=== PATIENT | male | born 1945 | race Caucasian/White ===

== ENCOUNTER 2017-08-19 10:47 | Emergency (ER) | payer OTHER, MEDICARE ==
--- NOTE | 2017-08-19 11:07 | C.PDOC ---
History Of Present Illness 71 year old male presents to the ED with complaints of pain to the right wrist following a trip and fall last night. Patient reports while falling he extended both of his hands to break his fall. He notes he is right hand dominant and denies head injury or LOC. Chief Complaint (Nursing): Upper Extremity Problem/Injury History Per: Patient History/Exam Limitations: no limitations Onset/Duration Of Symptoms: Hrs Current Symptoms Are (Timing): Still Present Quality: "Pain" Exacerbating Factor(s): Movement Recent travel outside of the [place]: No Past Medical History Reviewed: Historical Data, Nursing Documentation, Vital Signs Vital Signs: Last Vital Signs Temp 98 F 08/19/17 14:00 Pulse 72 08/19/17 14:00 Resp 18 08/19/17 14:00 BP 116/74 08/19/17 14:00 Pulse Ox 95 08/19/17 14:46 - Medical History PMH: Diabetes (type 2), HTN Family History: States: Unknown Family Hx - Social History Hx Tobacco Use: No Hx Alcohol Use: No Hx Substance Use: No - Immunization History Hx Tetanus Toxoid Vaccination: No Hx Influenza Vaccination: Yes Hx Pneumococcal Vaccination: No Review Of Systems Musculoskeletal: Positive for: Hand Pain (right wrist pain ) Neurological: Negative for: Weakness, Numbness Physical Exam - Physical Exam Appears: Non-toxic, No Acute Distress Skin: Warm, Dry Head: Atraumatic, Normacephalic Cardiovascular: Rhythm Regular, No Murmur Respiratory: No Rales, No Rhonchi, No Wheezing, Other (clear to auscultation bilaterally ) Extremity: No Normal ROM (slight decreased ROM of the right wrist ), Tenderness (point tenderness to posterior aspect of right wrist ), Capillary Refill (good capillary refill, less than two seconds ), No Deformity, No Swelling Pulses: Left Radial: Normal, Right Radial: Normal Neurological/Psych: Oriented x3 ED Course And Treatment O2 Sat by Pulse Oximetry: 95 (RA) Disposition - Disposition Referrals: [facility], [Non-Staff] - Disposition: HOME/ ROUTINE Disposition Time: 13:30 Condition: GOOD Additional Instructions: Thank you for letting us take care of you today. Your provider was Dr. Bergeron. You were treated for a wrist sprain. The emergency medical care you received today was directed at your acute symptoms. If you were prescribed any medication, please fill it and take as directed. It may take several days for your symptoms to resolve. Return to the Emergency Department if your symptoms worsen, do not improve, or if you have any other problems. Please contact your doctor or call one of the physicians/clinics you have been referred to that are listed on the Patient Visit Information form that is included in your discharge packet. Bring any paperwork you were given at discharge with you along with any medications you are taking to your follow up visit. Our treatment cannot replace ongoing medical care by a primary care provider (PCP) outside of the emergency department. Thank you for allowing the [facility] team to be part of your care today. Follow up with your primary doctor in 1-2 days for re-evaluation and further management. Prescriptions: Ibuprofen [Motrin] 600 mg PO Q6 PRN #20 tab PRN Reason: Pain, Moderate (4-7) Instructions: Wrist Sprain (ED) Forms: [employer] (Azeri) - Clinical Impression Clinical Impression: Wrist sprain - Scribe Statement The provider has reviewed the documentation as recorded by the Scribbraxton Martin All medical record entries made by the Scribe were at my direction and personally dictated by me. I have reviewed the chart and agree that the record accurately reflects my personal performance of the history, physical exam, medical decision making, and the department course for this patient. I have also personally directed, reviewed, and agree with the discharge instructions and disposition.
--- NOTE | 2017-08-19 13:38 | RAD ---
PROCEDURE: Right Wrist Radiographs. HISTORY: r/o fx COMPARISON: None. FINDINGS: BONES: No evidence of acute fracture. JOINTS: No evidence of dislocation. [id number] arthritic and osteoarthritic changes noted at the right wrist. SOFT TISSUES: Normal. OTHER FINDINGS: None. IMPRESSION: No evidence of acute fracture or dislocation. Arthritic degenerative changes.
[2017-08-19 14:21] VITALS: BP 116/74; PULSE 72; RESP 18; TEMP 98
[2017-08-19 14:40] VITALS: O2SAT 95
== END 2017-08-19 14:00 | disposition home or self-care (01) ==
LOC: C.ER 10:47
DX: S63.501A Unspecified sprain of right wrist, initial encounter (principal); W01.0XXA Fall on same level from slipping, tripping and stumbling without subsequent striking against object, initial encounter; E11.9 Type 2 diabetes mellitus without complications; I10 Essential (primary) hypertension

== ENCOUNTER 2018-09-02 05:57 | Day surgery (SDC) | payer OTHER, MEDICARE ==
[2018-07-20 10:20] VITALS: BMI 27.2
[2018-09-02] MEDS ORDERED: Iohexol 240 (50 ml) ONE (07:36)
[2018-09-02] MEDS ORDERED: cefTRIAXone 1 gm 1 GM/100 ML BAG IVPB ONE (07:36)
[2018-09-02] MEDS ORDERED: Lidocaine 2% Jelly (Uro-Jet) ONE (07:37)
[2018-09-02] MEDS ORDERED: Gentamicin 160 MG in Sodium Chloride 0.9% 100 ML IVPB ONE (07:45)
[2018-09-02] MEDS ORDERED: Midazolam 2 MG/2 ML VIAL ONE (07:55)
[2018-09-02] MEDS ORDERED: Propofol 10 mg/ml Inj (20 ML) ONE (07:55)
[2018-09-02] MEDS ORDERED: HYDROmorphone 0.5 mg/0.5 ml ISec IVP PRN (08:50)
[2018-09-02] MEDS ORDERED: Lactated Ringer's 1,000 ML IV SCH (09:00)
[2018-09-02] MEDS ORDERED: Tolterodine 4 mg ER Cap PO ONE (09:06)
--- NOTE | 2018-09-02 09:11 | PCM.SURG1 ---
Surgeon's Initial Post Op Note - Surgeon's Notes Surgeon: Shahla Ramesh Hardness Inspector: none Type of Anesthesia: General LMA Pre-Operative Diagnosis: Bladder stone Operative Findings: BPH. Urethral stricture. Bladder stone, 1mm Post-Operative Diagnosis: same Operation Performed: custo, urethral dilation. removal of bladder stone Specimen/Specimens Removed: urine. bladder stone Estimated Blood Loss: EBL {In ML}: 0 Blood Products Given: N/A Post-Op Condition: Good Date of Surgery/Procedure: 09/02/18 Time of Surgery/Procedure: 08:50
[2018-09-02] MEDS ORDERED: Lactated Ringer's 1,000 ML IV ONE (10:25)
[2018-09-02 11:23] VITALS: BP 130/70; PULSE 71; RESP 18; TEMP 98; O2SAT 100
--- NOTE | 2018-09-05 02:49 | OP ---
PROCEDURE DATE: 09/02/2018 UROLOGY OPERATIVE REPORT PREOPERATIVE DIAGNOSIS: Bladder calculus. POSTOPERATIVE DIAGNOSES: An 1-mm bladder calculus, benign prostatic hypertrophy, urethral stricture. PROCEDURES: Cystoscopy, urethral dilation, removal of bladder calculus, exam under anesthesia. OPERATING SURGEON: Chika Ramesh MD DESCRIPTION OF PROCEDURE: Procedure is as follows. Electromechanical Equipment Assembler film of the abdomen was obtained. The patient was placed in lithotomy position. Genitalia were prepped and draped sterilely. Perioperative antibiotics were administered. Electromechanical Equipment Assembler film of the abdomen revealed extensive calcifications in the area of the prostate. Additionally, there was a 1-2 cm radiodensity in the left lower quadrant in the pelvis. A 22-[place]izen [place] cystoscope sheath was introduced under direct vision. Urethra, prostate, and bladder were inspected with 30-degree lens. FINDINGS: There was mild stricture of the bulbous urethra. The stricture was dilated under direct vision by passing the cystoscope sheath. The prostatic urethra was occlusive secondary to trilobar prostatic hypertrophy. The prostatic urethra was 3 cm in length. The bladder was inspected with 30-degree and 70-degree lenses. The 1-mm bladder calculus which was yellow and rounded and was located on the right floor of the bladder was removed with the biopsy forceps. The calculus was not retrieved, thus could not be sent for stone analysis. Findings, there was no bladder tumor. There was moderate bladder trabeculation. There multiple small cellules. The cellules were inspected. There were no mucosal lesions within the cellules. There was a small bladder diverticulum within the neck. This diverticulum was entered as well with a small cystoscope sheath, namely 17[place] in size. There was no stone or mucosal lesion within the bladder diverticulum. The bladder diverticulum was located around the right posterior floor of the bladder. The bladder was reinspected with 70-degree lens and confirmed with the above findings. There were no other stones within the bladder. There was no bladder tumor. The ureteral orifices were normal in position and shape. The ureteral orifices were normal in position and shape on the trigone. Of note during cystoscopy, there was a sensation of the prostatic urethra the cystoscope sheath. The cystoscope and the sheath were removed. A Blank catheter was inserted. Bladder drainage was clear. Rectal examination was performed. Prostate was supple and smooth, approximately 25 g in size, without fixation, induration or nodularity. The patient was returned to supine position. The patient tolerated the procedure without complication. Chika Ramesh MD cc: Dr. Kamryn Munreo MD
--- NOTE | 2018-09-05 15:03 | RAD ---
Date of service: 09/02/2018 HISTORY: BLADDER CALCULUS COMPARISON: CT abdomen and pelvis performed 05/26/18 FINDINGS: BOWEL: Nonobstructive bowel gas pattern. Moderate constipation. BONES: Degenerative changes of the spine. OTHER FINDINGS: 2.1 x 1.5 cm lobulated calcification in the left pelvis. 8 mm calcification projects over the right sacrum.No coarse calcifications evident in the expected location of the kidneys or ureters. Evidence of prostate calcifications. IMPRESSION: 2.1 x 1.5 cm lobulated calcification in the left pelvis. 8 mm calcification projects over the right sacrum. Evidence of prostate calcifications.
== END 2018-09-02 13:12 | disposition home or self-care (01) ==
LOC: C.SDS 05:57
PROVIDERS: ATTEND Urology
DX: N21.0 Calculus in bladder (principal); N40.0 Benign prostatic hyperplasia without lower urinary tract symptoms
CPT/HCPCS: 52310; 82948; 87086; J0696; J1170; J7120

== ENCOUNTER 2019-03-03 07:08 | Outpatient (CLI) | payer MEDICARE, OTHER | END 2019-03-03 07:09 | disposition home or self-care (01) | LOC: C.CARD 07:08 | DX: I10 Essential (primary) hypertension (principal); E78.2 Mixed hyperlipidemia; E11.9 Type 2 diabetes mellitus without complications ==